=== PATIENT | female | born 1950 | race African-American/Black ===

== ENCOUNTER 2017-08-22 02:23 | Emergency (ER) | payer MEDICARE ==
[~2017-08-22] VITALS: Ht 162.6 cm; Wt 45.0 kg
[2017-08-22] MEDS ORDERED: CLONIDINE 0.2MG TABLET PO ONE (03:15)
[2017-08-22] MEDS ORDERED: KETOROLAC 60MG/2ML VIAL IM ONE (03:15)
[2017-08-22] MEDS ORDERED: HYDROCODONE/ACETAMINOPHEN 5/325MG TABLET PO ONE (03:15)
[2017-08-22 04:57] VITALS: BP 150/75
== END 2017-08-22 05:17 | disposition home or self-care (01) ==
LOC: ER 02:23
DX: S16.1XXA Strain of muscle, fascia and tendon at neck level, initial encounter (principal); M54.89 Other dorsalgia; X58.XXXA Exposure to other specified factors, initial encounter; Y93.84 Activity, sleeping; Y92.003 Bedroom of unspecified non-institutional (private) residence as the place of occurrence of the external cause; I10 Essential (primary) hypertension; I25.10 Atherosclerotic heart disease of native coronary artery without angina pectoris; Z95.5 Presence of coronary angioplasty implant and graft
CPT/HCPCS: 96372; 99283; J1885